=== PATIENT | female | born 1965 | race Caucasian/White ===

== ENCOUNTER → 2017-10-26 07:51 | Outpatient (CLI) | payer OTHER, SELFPAY ==
--- NOTE | 2017-10-26 06:56 | HPBI_ITS ---
MAMMOGRAPHY - BILATERAL SCREENING REASON FOR EXAM: Female, 51 years old. Routine annual screening examination. PERTINENT HISTORY: Non-contributory. TECHNIQUE: Digital bilateral breast willa (3D mammographic acquisition) in the CC and MLO projections. 2-D mediolateral oblique (MLO) and craniocaudad (CC) views of both breasts were obtained. CAD: Full Field Digital Mammography with Computer Added Detection was performed. COMPARISON: Comparison is made with prior examination dated October 12, 2016 and September 18, 2015. FINDINGS: Breast Composition: There are scattered areas of fibroglandular density. There are no dominant masses or suspicious calcifications. Stable small bilateral benign appearing axillary lymph nodes. No other significant abnormalities are identified. There has been no significant change since the prior study. HPBI/SCREENING MAMM (CAD), BILAT IMPRESSION: Stable bilateral screening mammogram. Yearly follow-up mammogram recommended. (A) ASSESSMENT CATEGORY: BIRADS Category 2: Benign. A letter regarding these results will be sent to the patient by the facility within 30 days. Approximately 10% of breast cancers are not detected by mammography. A normal mammogram should not delay biopsy of a clinically suspicious abnormality. [id number] Electronically Signed: Gerardo Leon MD at 8:22 EST Tel [phone], Service support ,
== END ==
PROVIDERS: Family Provider Family Medicine; PCP Family Medicine; Visit Provider Family Medicine
DX: Z12.31 Encounter for screening mammogram for malignant neoplasm of breast (principal)
CPT/HCPCS: 77063; 77067

== ENCOUNTER → 2017-11-24 10:34 | Outpatient (CLI) | payer OTHER, SELFPAY ==
[2017-11-24 12:22] LABS: Absolute Lymphocyte Count 1.51 X10^3/ul (0.83-4.51); Absolute Neutrophil Count 5.2 X10^3/uL (2.0-7.7); Basophil# 0.01 X10^3/uL; Basophil% 0.1 % (0-1); Eosinophil# 0.06 X10^3/uL; Eosinophils% 0.8 % (0-5); Hematocrit 41.4 % (37-47); Hemoglobin 13.7 g/dl (12.0-15.0); Lymphocyte # 1.51 X10^3/ul (4.0); Lymphocyte % 20.8 % (19-41); Mean Corp Hgb Conc 33.1 g/gl (32-36); Mean Corpuscular Hgb 30.3 pg (27.0-32.0); Mean Corpuscular Volume 91.6 fL (81-99); Monocyte# 0.48 X10^3/uL; Monocyte% 6.6 % (0-10); Neutrophil # 5.18 X10^3/uL (2.7-7.7); Neutrophil % 71.6 % (47-70); Platelet Count 295 K/mm3 (150-450); RBC Distribution Width CV 13.5 % (11.6-14.6); RBC Distribution Width SD 44.8 fl (35.1-43.9); Red Blood Count 4.52 M/mm3 (4.2-5.4); White Blood Count 7.3 K/mm3 (4.4-11.0)
[2017-11-24 12:34] LABS: ALB/GLOB Ratio 0.9 RATIO (0.9-2.4); AST(SGOT) 25 U/L (15-37); Alanine Aminotransfer ALT/SGPT 43 U/L (13-56); Albumin, Serum 3.7 g/dL (3.2-5.0); Alkaline Phosphatase 125 U/L (45-117); Anion Gap 8 (5-15); BUN 16 mg/dL (7-18); BUN/Creat Ratio 20.8 RATIO (10-20); Calcium,Total 9.1 mg/dL (8.5-10.1); Chloride 103 mmol/L (98-107); Cholesterol 186 mg/dL (200); Creatinine, Serum 0.77 mg/dL (0.55-1.02); EST Glomerular Filtration Rate 83 mL/min (>60); Est Glom Filt Rate - Afr Amer 100 mL/min (>60); Globulin 3.9 g/dL (2.2-4.2); Glucose 93 mg/dL (74-106); High Density Lipoprotein 76 mg/dL; Potassium 3.4 mmol/L (3.5-5.1); Protein, Total 7.6 g/dL (6.4-8.2); Sodium Level 139 mmol/L (136-145); Triglycerides 76 mg/dL; Very Low Density Lipoprotein 15 mg/dL (5-40)
[2017-11-24 12:35] LABS: POSITIVE COUNT NO; POSITIVE DIFFERENTIAL NO; POSITIVE MORPHOLOGY NO
== END ==
PROVIDERS: Family Provider Family Medicine; PCP Family Medicine; Visit Provider Family Medicine
DX: I10 Essential (primary) hypertension (principal); E78.5 Hyperlipidemia, unspecified; R53.83 Other fatigue; Z51.81 Encounter for therapeutic drug level monitoring
CPT/HCPCS: 36415; 80053; 80061; 85025

== ENCOUNTER → 2017-12-22 11:46 | Outpatient (CLI) | payer OTHER, SELFPAY ==
[2017-12-24 14:52] LABS: HPV Reflexed? NOT INDICATED
== END ==
PROVIDERS: Visit Provider Obstetrics & Gynecology
DX: Z12.4 Encounter for screening for malignant neoplasm of cervix (principal)
CPT/HCPCS: 88175; G0145

== ENCOUNTER → 2018-08-25 08:16 | Outpatient (CLI) | payer OTHER, SELFPAY ==
[2018-08-25 12:32] LABS: Color, Urine Amber (Yellow); Glucose, Dipstick Normal (Normal); Ketone-Dipstick 5 mg/dl (Negative); Leukocyte Esterase-Dipstick 500 /ul (Negative); Nitrite-Dipstick Negative (Negative); Occult Blood-Urine 10 /ul (Negative); Protein-Dipstick 30 mg/dl (Negative); Urine Bilirubin Dipstick Negative (Negative); Urine Clarity Sl. Cloudy (Clear); Urine Urobilinogen 1 mg/dl (Normal)
[2018-08-25 12:48] LABS: Absolute Lymphocyte Count 6.44 X10^3/ul (0.83-4.51); Basophil# 0.24 X10^3/uL; Basophil% 2.2 % (0-1); Eosinophil# 0.18 X10^3/uL; Eosinophils% 1.7 % (0-5); Hematocrit 40.8 % (37-47); Hemoglobin 13.3 g/dl (12.0-15.0); Lymphocyte # 6.44 X10^3/ul (4.0); Lymphocyte % 59.2 % (19-41); Mean Corp Hgb Conc 32.6 g/gl (32-36); Mean Corpuscular Hgb 29.4 pg (27.0-32.0); Mean Corpuscular Volume 90.1 fL (81-99); Mean Platelet Vol. 10.9 fl (6.2-12.0); Monocyte# 1.03 X10^3/uL; Monocyte% 9.5 % (0-10); Neutrophil # 2.98 X10^3/uL (2.7-7.7); Neutrophil % 27.3 % (47-70); Platelet Count 260 K/mm3 (150-450); RBC Distribution Width CV 14.8 % (11.6-14.6); RBC Distribution Width SD 48.3 fl (35.1-43.9); Red Blood Count 4.53 M/mm3 (4.2-5.4); White Blood Count 10.9 K/mm3 (4.4-11.0)
[2018-08-25 12:49] LABS: Differential Indicated SCAN CRITERIA MET; POSITIVE COUNT NO; POSITIVE DIFFERENTIAL YES; POSITIVE MORPHOLOGY YES
[2018-08-25 12:51] LABS: BUN 15 mg/dL (7-18); BUN/Creat Ratio 16.1 RATIO (10-20); Creatinine, Serum 0.93 mg/dL (0.55-1.02); EST Glomerular Filtration Rate 67 mL/min (>60); Est Glom Filt Rate - Afr Amer 81 mL/min (>60); Glucose 131 mg/dL (74-106); Protein, Total 7.8 g/dL (6.4-8.2)
[2018-08-25 12:52] LABS: ALB/GLOB Ratio 0.6 RATIO (0.9-2.4); AST(SGOT) 131 U/L (15-37); Alanine Aminotransfer ALT/SGPT 258 U/L (13-56); Alkaline Phosphatase 505 U/L (45-117); Anion Gap 8 (5-15); Chloride 97 mmol/L (98-107); Globulin 4.8 g/dL (2.2-4.2); Potassium 3.4 mmol/L (3.5-5.1); Sodium Level 137 mmol/L (136-145)
[2018-08-25 12:53] LABS: White Blood Cells 10-25 SEEN /hpf (0-5)
[2018-08-25 12:54] LABS: Bacteria 2+ /hpf (None Seen); Mucous, Urine 1+ /hpf (<or=2+); Red Blood Cells-Urine 0-5 SEEN /hpf (0-5); Squamous Epithelial Cells - UA 25-50 SEEN /hpf (5-10)
[2018-08-25 13:16] LABS: Atypical Lymphocyte 2+ %; Differential Comment SCANNED
== END ==
LOC: LAB.FUTURE 08-21 19:31 → BFHLAB 05-01 08:30
PROVIDERS: Family Provider Family Medicine; PCP Family Medicine; Visit Provider Family Medicine
DX: R50.9 Fever, unspecified (principal); R30.0 Dysuria
CPT/HCPCS: 36415; 80053; 81001; 85025; 87086; 87088

== ENCOUNTER → 2018-08-31 09:48 | Outpatient (CLI) | payer OTHER, SELFPAY ==
[2018-08-31 12:41] LABS: Absolute Lymphocyte Count 6.92 X10^3/ul (0.83-4.51); Absolute Neutrophil Count 2.8 X10^3/uL (2.0-7.7); Basophil# 0.28 X10^3/uL; Basophil% 2.4 % (0-1); Eosinophil# 0.27 X10^3/uL; Eosinophils% 2.3 % (0-5); Hematocrit 39.1 % (37-47); Hemoglobin 12.9 g/dl (12.0-15.0); Lymphocyte # 6.92 X10^3/ul (4.0); Lymphocyte % 59.2 % (19-41); Mean Corpuscular Hgb 29.7 pg (27.0-32.0); Mean Corpuscular Volume 90.1 fL (81-99); Mean Platelet Vol. 10.8 fl (6.2-12.0); Monocyte# 1.41 X10^3/uL; Monocyte% 12.1 % (0-10); Neutrophil # 2.77 X10^3/uL (2.7-7.7); Neutrophil % 23.7 % (47-70); Platelet Count 258 K/mm3 (150-450); RBC Distribution Width SD 49.1 fl (35.1-43.9); Red Blood Count 4.34 M/mm3 (4.2-5.4); White Blood Count 11.7 K/mm3 (4.4-11.0)
[2018-08-31 12:44] LABS: ALB/GLOB Ratio 0.7 RATIO (0.9-2.4); AST(SGOT) 66 U/L (15-37); Alanine Aminotransfer ALT/SGPT 106 U/L (13-56); Alkaline Phosphatase 333 U/L (45-117); Anion Gap 7 (5-15); BUN 16 mg/dL (7-18); BUN/Creat Ratio 17.4 RATIO (10-20); Calcium,Total 9.4 mg/dL (8.5-10.1); Chloride 100 mmol/L (98-107); Creatinine, Serum 0.92 mg/dL (0.55-1.02); EST Glomerular Filtration Rate 67 mL/min (>60); Est Glom Filt Rate - Afr Amer 81 mL/min (>60); Globulin 4.6 g/dL (2.2-4.2); Glucose 88 mg/dL (74-106); Potassium 3.9 mmol/L (3.5-5.1); Protein, Total 7.6 g/dL (6.4-8.2); Sodium Level 140 mmol/L (136-145)
[2018-08-31 13:02] LABS: Differential Indicated SCAN CRITERIA MET; POSITIVE COUNT NO; POSITIVE DIFFERENTIAL YES; POSITIVE MORPHOLOGY YES
[2018-08-31 13:03] LABS: Atypical Lymphocyte 1+ %
[2018-09-02 11:03] LABS: EBV Acute VCA IgM < 36.0 U/mL (0.0-35.9); EBV Early Antigen IgG 91.7 U/mL (0.0-8.9); EBV-VCA IgG > 600.0 U/mL (0.0-17.9)
== END ==
LOC: LAB.FUTURE 08-21 19:43 → MTLAB 05-01 08:29
PROVIDERS: Family Provider Family Medicine; PCP Family Medicine; Referring Provider Family Medicine; Visit Provider Family Medicine
DX: R53.83 Other fatigue (principal); B34.9 Viral infection, unspecified; D72.820 Lymphocytosis (symptomatic); R74.8 Abnormal levels of other serum enzymes
CPT/HCPCS: 36415; 80053; 85025; 86663; 86664; 86665

== ENCOUNTER → 2018-09-12 10:17 | Outpatient (CLI) | payer OTHER, SELFPAY ==
[2017-03-29 07:59] VITALS: BMI 29.6
[2018-09-12 12:07] LABS: ALB/GLOB Ratio 0.7 RATIO (0.9-2.4); AST(SGOT) 46 U/L (15-37); Alanine Aminotransfer ALT/SGPT 56 U/L (13-56); Albumin, Serum 3.3 g/dL (3.2-5.0); Alkaline Phosphatase 189 U/L (45-117); Anion Gap 8 (5-15); BUN 19 mg/dL (7-18); BUN/Creat Ratio 20.7 RATIO (10-20); Calcium,Total 9.2 mg/dL (8.5-10.1); Chloride 104 mmol/L (98-107); Creatinine, Serum 0.92 mg/dL (0.55-1.02); EST Glomerular Filtration Rate 68 mL/min (>60); Est Glom Filt Rate - Afr Amer 82 mL/min (>60); Globulin 4.5 g/dL (2.2-4.2); Glucose 131 mg/dL (74-106); Potassium 4.3 mmol/L (3.5-5.1); Protein, Total 7.8 g/dL (6.4-8.2); Sodium Level 140 mmol/L (136-145)
[2018-09-12 12:08] LABS: Absolute Lymphocyte Count 5.85 X10^3/ul (0.83-4.51); Absolute Neutrophil Count 2.5 X10^3/uL (2.0-7.7); Basophil# 0.07 X10^3/uL; Basophil% 0.8 % (0-1); Eosinophil# 0.09 X10^3/uL; Hematocrit 40.3 % (37-47); Hemoglobin 12.9 g/dl (12.0-15.0); Lymphocyte # 5.85 X10^3/ul (4.0); Lymphocyte % 63.2 % (19-41); Mean Corpuscular Hgb 29.3 pg (27.0-32.0); Mean Corpuscular Volume 91.4 fL (81-99); Mean Platelet Vol. 10.5 fl (6.2-12.0); Monocyte# 0.76 X10^3/uL; Monocyte% 8.2 % (0-10); Neutrophil # 2.47 X10^3/uL (2.7-7.7); Neutrophil % 26.7 % (47-70); Platelet Count 296 K/mm3 (150-450); RBC Distribution Width CV 16.5 % (11.6-14.6); RBC Distribution Width SD 54.5 fl (35.1-43.9); Red Blood Count 4.41 M/mm3 (4.2-5.4); White Blood Count 9.3 K/mm3 (4.4-11.0)
[2018-09-12 12:14] LABS: Differential Indicated SCAN CRITERIA MET; POSITIVE COUNT NO; POSITIVE DIFFERENTIAL YES; POSITIVE MORPHOLOGY NO
[2018-09-12 13:01] LABS: Platelet Estimate ADEQUATE (ADEQ); Reactive Lymphocyte 1+
[2018-09-12 13:02] LABS: Red Cell Morphology NORM C+C NORMAL (NORM C&C)
== END ==
LOC: LAB.FUTURE 08-21 20:17 → BFHLAB 05-01 08:28
PROVIDERS: Family Provider Family Medicine; PCP Family Medicine; Visit Provider Family Medicine
DX: R74.8 Abnormal levels of other serum enzymes (principal); R79.89 Other specified abnormal findings of blood chemistry
CPT/HCPCS: 36415; 80053; 85025

== ENCOUNTER → 2018-10-10 10:25 | Outpatient (CLI) | payer OTHER, SELFPAY ==
[2018-10-10 12:51] LABS: Absolute Neutrophil Count 1.5 X10^3/uL (2.0-7.7); Basophil# 0.03 X10^3/uL; Basophil% 0.5 % (0-1); Eosinophil# 0.08 X10^3/uL; Eosinophils% 1.3 % (0-5); Hematocrit 39.7 % (37-47); Hemoglobin 12.9 g/dl (12.0-15.0); Lymphocyte % 64.9 % (19-41); Mean Corp Hgb Conc 32.5 g/gl (32-36); Mean Corpuscular Hgb 29.7 pg (27.0-32.0); Mean Corpuscular Volume 91.5 fL (81-99); Mean Platelet Vol. 10.7 fl (6.2-12.0); Monocyte# 0.55 X10^3/uL; Monocyte% 9.2 % (0-10); Neutrophil # 1.45 X10^3/uL (2.7-7.7); Neutrophil % 24.1 % (47-70); Platelet Count 266 K/mm3 (150-450); RBC Distribution Width SD 50.3 fl (35.1-43.9); Red Blood Count 4.34 M/mm3 (4.2-5.4)
[2018-10-10 12:54] LABS: POSITIVE COUNT NO; POSITIVE DIFFERENTIAL NO; POSITIVE MORPHOLOGY NO
[2018-10-10 13:01] LABS: ALB/GLOB Ratio 0.9 RATIO (0.9-2.4); AST(SGOT) 47 U/L (15-37); Alanine Aminotransfer ALT/SGPT 58 U/L (13-56); Albumin, Serum 3.7 g/dL (3.2-5.0); Alkaline Phosphatase 133 U/L (45-117); Anion Gap 7 (5-15); BUN 20 mg/dL (7-18); BUN/Creat Ratio 23.6 RATIO (10-20); Calcium,Total 9.6 mg/dL (8.5-10.1); Chloride 104 mmol/L (98-107); Creatinine, Serum 0.85 mg/dL (0.55-1.02); EST Glomerular Filtration Rate 74 mL/min (>60); Est Glom Filt Rate - Afr Amer 90 mL/min (>60); Globulin 4.3 g/dL (2.2-4.2); Glucose 83 mg/dL (74-106); Potassium 3.6 mmol/L (3.5-5.1); Sodium Level 138 mmol/L (136-145)
== END ==
PROVIDERS: Family Provider Family Medicine; PCP Family Medicine; Visit Provider Family Medicine
DX: R94.5 Abnormal results of liver function studies (principal); R79.89 Other specified abnormal findings of blood chemistry
CPT/HCPCS: 36415; 80053; 85025

== ENCOUNTER → 2018-10-28 10:13 | Outpatient (CLI) | payer OTHER, SELFPAY ==
[2018-10-28 12:25] LABS: ALB/GLOB Ratio 0.9 RATIO (0.9-2.4); AST(SGOT) 48 U/L (15-37); Alanine Aminotransfer ALT/SGPT 62 U/L (13-56); Albumin, Serum 3.8 g/dL (3.2-5.0); Alkaline Phosphatase 123 U/L (45-117); Anion Gap 8 (5-15); BUN 18 mg/dL (7-18); BUN/Creat Ratio 23.3 RATIO (10-20); Calcium,Total 9.3 mg/dL (8.5-10.1); Chloride 102 mmol/L (98-107); Creatinine, Serum 0.77 mg/dL (0.55-1.02); EST Glomerular Filtration Rate 83 mL/min (>60); Est Glom Filt Rate - Afr Amer 100 mL/min (>60); Globulin 4.1 g/dL (2.2-4.2); Glucose 89 mg/dL (74-106); Potassium 3.6 mmol/L (3.5-5.1); Protein, Total 7.9 g/dL (6.4-8.2); Sodium Level 137 mmol/L (136-145)
== END ==
LOC: LAB.FUTURE 08-23 03:06 → BFHLAB 05-01 08:28
PROVIDERS: Family Provider Family Medicine; PCP Family Medicine; Visit Provider Family Medicine
DX: R74.8 Abnormal levels of other serum enzymes (principal)
CPT/HCPCS: 36415; 80053

== ENCOUNTER → 2018-11-04 10:21 | Outpatient (CLI) | payer OTHER, SELFPAY ==
--- NOTE | 2018-11-04 10:25 | US_ITS ---
STUDY: ABDOMINAL ULTRASOUND - RIGHT UPPER QUADRANT REASON FOR VISIT: Female, 52 years old. ELEVATED LFT'S HX OF ANUP LOBO TECHNIQUE: Ultrasound evaluation of the right upper quadrant was performed with real-time and static mendoza-scale imaging. TECHNICAL QUALITY: Adequate. COMPARISON: None. FINDINGS: Liver: The liver measures 12.8 cm. There is normal echogenicity of the liver. The bile ducts are within normal limits. There is hepatic color flow. The direction of portal flow is hepatopetal. There is no demonstrated mass lesion. Gallbladder: Normal distended gallbladder. The gallbladder wall measures 2.9 mm. There is a negative sonographic Payton's sign. There is no pericholecystic fluid. There are no gallstones. Common Bile Duct (C.B.D.): The common bile duct measures 2.7 mm. Pancreas: Normal size of the head, body and tail of the pancreas. There is normal echogenicity of the pancreas. There is no demonstrated pancreatic mass or cyst. Right Kidney: Normal size of the right kidney. The right kidney measures 10.5 cm. Normal renal cortex. The right cortex measures 1.2 cm. There is a 1.3 cm cyst. There is no right hydronephrosis. US/Abdomen Limited IMPRESSION: Normal right upper quadrant ultrasound examination. Electronically Signed: Nicho iNcholas MD at 22:55 EST , Service support ,
== END ==
PROVIDERS: Family Provider Family Medicine; PCP Family Medicine; Referring Provider Family Medicine; Visit Provider Family Medicine
DX: R74.8 Abnormal levels of other serum enzymes (principal)
CPT/HCPCS: 76705

== ENCOUNTER → 2018-11-29 15:20 | Outpatient (CLI) | payer OTHER, SELFPAY ==
[2018-11-23 13:13] LABS: ALB/GLOB Ratio 0.9 RATIO (0.9-2.4); AST(SGOT) 40 U/L (15-37); Alanine Aminotransfer ALT/SGPT 52 U/L (13-56); Albumin, Serum 3.7 g/dL (3.2-5.0); Alkaline Phosphatase 128 U/L (45-117); Anion Gap 6 (5-15); BUN 21 mg/dL (7-18); Calcium,Total 9.6 mg/dL (8.5-10.1); Chloride 102 mmol/L (98-107); Creatinine, Serum 0.88 mg/dL (0.55-1.02); EST Glomerular Filtration Rate 71 mL/min (>60); Est Glom Filt Rate - Afr Amer 86 mL/min (>60); Globulin 4.1 g/dL (2.2-4.2); Glucose 88 mg/dL (74-106); Potassium 3.9 mmol/L (3.5-5.1); Protein, Total 7.8 g/dL (6.4-8.2); Sodium Level 138 mmol/L (136-145)
--- OUTSIDE RECORDS SUMMARY | 2019-01-11 21:24 | XMS RPT_ITS | CCD ---
:1965 External Reference #:[id number] Author Organization [facility] Care Team Providers Name Role Phone Unavailable Unavailable Unavailable Medications Medication Name Sig Date Prescriber Location aspirin QI LOW DOSE 81 MG 07-17-2014 [facility] TBEC One tablet every (38311) other day ASPIRIN [id number] Millicent A Malys, DO QI LOW DOSE 81 MG TBEC One tablet 07-17-2014 [facility] (83162) every other day ASPIRIN 68516399680 Millicent A Malys, DO atenolol ATENOLOL 25 MG TABS One 07-17-2014 Millicent A Malys, DO [facility] half tab every day (17369) ATENOLOL 30219018766 Millicent A Malys, DO ATENOLOL 25 MG TABS One half 07-17-2014 Millicent A Malys, DO [facility] tab every day (98528) ATENOLOL 87926537946 Millicent A Malys, DO cholecalciferol VITAMIN D3 2000 UNIT TABS One 07-17-2014 [facility] tablet by mouth daily (62944) CHOLECALCIFEROL 41669925170 Millicent A Malys, DO VITAMIN D3 2000 UNIT TABS One tablet by 07-17-2014 [facility] (55779) mouth daily CHOLECALCIFEROL 74110034104 Millicent A Malys, DO cranberry preparation CRANBERRY 300 MG TABS One 07-17-2014 [facility] tablet by mouth daily (57601) CRANBERRY 66435351101 Millicent A Malys, DO CRANBERRY 300 MG TABS One tablet by 07-17-2014 [facility] (08967) mouth daily CRANBERRY 47282732097 Millicent A Malys, DO cyclobenzaprine CYCLOBENZAPRINE HCL 5 MG 11-01-2015 Toni Osborne [facility] TABS 1-2 tablet three DO [facility] (96190) times daily as needed for back pain CYCLOBENZAPRINE HCL 40197825012 Toni Osborne DO CYCLOBENZAPRINE HCL 5 MG TABS 11-01-2015 Toni Osborne DO [facility] 1-2 tablet three times daily (10656) as needed for back pain CYCLOBENZAPRINE HCL 13927552767 Toni Osborne DO escitalopram ESCITALOPRAM OXALATE 10 07-17-2014 Millicent A Malys, DO [facility] MG TABS One tablet by [facility] (73061) mouth daily ESCITALOPRAM OXALATE 29306305414 Millicent A Malys, DO ESCITALOPRAM OXALATE 10 MG 07-17-2014 Millicent A Malys, DO [facility] TABS One tablet by mouth daily (23187) ESCITALOPRAM OXALATE 31144731941 Millicent A Malys, DO hydroCHLOROthiazide HYDROCHLOROTHIAZIDE 25 MG 07-17-2014 Millicent A [facility] TABS One tablet by mouth Malys, DO [facility] daily (80132) HYDROCHLOROTHIAZIDE 15951389055 Millicent A Malys, DO HYDROCHLOROTHIAZIDE 25 MG TABS 07-17-2014 Millicent A Malys, DO [facility] One tablet by mouth daily (22234) HYDROCHLOROTHIAZIDE 63747454477 Millicent A Malys, DO MULTIPLE VITAMINS-MINERALS WOMENS MULTIVITAMIN PLUS 07-17-2014 [facility] TABS One tablet by mouth [facility] (88498) daily MULTIPLE VITAMINS-MINERALS 09879158718 Millicent A Malys, DO MULTIPLE VITAMINS-MINERALS WOMENS MULTIVITAMIN PLUS 07-17-2014 [facility] TABS One tablet by mouth [facility] (33634) daily MULTIPLE VITAMINS-MINERALS 51347349726 Millicent A Malys, DO OMEGA-3 FATTY ACIDS CPDR OMEGA 3 CPDR One tablet by 07-17-2014 [facility] mouth daily [facility] (68573) OMEGA-3 FATTY ACIDS CPDR 51279861186 Millicent Gabriella Malys, DO OMEGA-3 FATTY ACIDS CPDR OMEGA 3 CPDR One tablet by 07-17-2014 [facility] mouth daily [facility] (94815) OMEGA-3 FATTY ACIDS CPDR 40386720963 Millicent Gabriella Malys, DO Problems Active Problems Category Problem Name Status Date Location Anxiety disorders Anxiety disorder Active [facility] (65739) Essential hypertension Hypertensive disorder Active [facility] (53108) Mood disorders Depressive disorder Active [facility] (36711) Unclassified Screening for Active 03-22-2017 - [facility] malignant neoplasm of [facility] (50731) colon Unclassified Adult health Active 07-17-2014 - [facility] examination [facility] (18538) Unclassified Screening mammography Active 07-17-2014 - [facility] (95722) Past or Other Problems Category Problem Name Status Date Location Otitis media and Dysfunction of Completed 08-23-2015 - [facility] related conditions eustachian tube [facility] (97496) Results Result Name Value Range Unit Interpretation Flag Date Location rx refill: erx request for escitalopram tab 10mg on null e-scripts [id number]`ESCITALOPRAM Better 01-03-2016 [facility] messenger TAB 10MG`10MG``90 Tablet`90`TAKE 1 TABLET BY - Surgical refill MOUTH DAILY``4`0`01/22/2015`01/03/2016[facility] 01-03-2016 [facility]*`[id number]``ESCITALOPRAM (67126) TAB 10MG Quantity: 90 Tablet Instructions: TAKE 1 TABLET BY MOUTH DAILY ESM_RR [id number]`ESCITALOPRAM Better 01-03-2016 [facility] TAB 10MG`10MG``90 Tablet`90`TAKE 1 TABLET BY - Surgical MOUTH DAILY``4`0`01/22/2015`01/03/2016[facility] 01-03-2016 [facility]*`[id number]``ESCITALOPRAM (19674) TAB 10MG Quantity: 90 Tablet Instructions: TAKE 1 TABLET BY MOUTH DAILY replaced document: (p) pap i-g w/rfx hrhpv on null GE use only - for Comment . Invalid Interpretation 10-14-2015 [facility] [employer] import Code 10-14-2015 [facility] when terms are (89464) not otherwise specified HPV RFLX Comment . 10-14-2015 - [facility] 10-14-2015 [facility] (21513) office visit: screening c-scope on null Dietary management yes Invalid 03-22-2017 [facility] education, Interpretation Code 03-22-2017 [facility] guidance, and (18635) counseling (procedure) Documentation of Done Invalid 03-22-2017 [facility] current Interpretation Code 03-22-2017 [facility] medications (43495) (procedure) Fall risk No Invalid 03-22-2017 [facility] assessment Interpretation Code 03-22-2017 [facility] (94880) Protein mass conc Done 03-22-2017 - [facility] 03-22-2017 [facility] (20404) Tobacco smoking Never smoker 03-22-2017 [facility] Surgical status UTIS 03-22-2017 [facility] (86967) Tobacco smoking Never Invalid 03-22-2017 [facility] Surgical status UTIS Interpretation Code 03-22-2017 [facility] (93733) Tobacco use HS Never smoker Invalid 03-22-2017 [facility] Interpretation Code 03-22-2017 [facility] (91171) Breast Mammogram Normal Invalid 11-18-2016 [facility] screening Bilateral Interpretation Code 11-18-2016 [facility] (28028) MG Breast Normal 11-18-2016 [facility] screening Bilateral 11-18-2016 [facility] (00303) General categories Normal Invalid 10-12-2016 [facility] [interpretation] Interpretation Code 10-12-2016 [facility] Cervical or (96381) vaginal smear or scraping by Cyto stain General categories Normal 10-12-2016 - [facility] Cyto stain Interp 10-12-2016 [facility] (Cervical or (65831) vaginal smear or scraping) Vital Signs Vital Sign Description Value / Unit Date Location The following section is limited to 5 entries per type and includes entries from the following time range: [id number] - [id number]. BMI (Body Mass Index) 30.68 kg/m2 03-22-2017 - 03-22-2017 [facility] (50832) Body Temperature 98 [degF] 03-22-2017 - 03-22-2017 [facility] (73887) BSA (Body Surface Area) 1.76 m2 08-23-2015 - 08-23-2015 [facility] (56495) Height 160.02 cm 03-22-2017 - 03-22-2017 [facility] (52106) Pulse (Heart Rate) 56 /min 03-22-2017 - 03-22-2017 [facility] (64606) Respiratory Rate 18 /min 03-22-2017 - 03-22-2017 [facility] (75133) Weight 78.56 kg 03-22-2017 - 03-22-2017 [facility] (91132) Procedures Procedure Name Date Provider Location Dietary management 03-22-2017 - [facility] education, guidance, and 03-22-2017 (39786) counseling Screening for malignant 03-22-2017 [facility] neoplasm of colon (38147) Adult health examination 07-17-2014 [facility] (33220) Screening mammography 07-17-2014 [facility] (66335) Plan of Treatment Plan Description Date Location Appointment Appointment 03-22-2017 - [facility] 03-22-2017 [facility] (70345) Colonoscopy Colonoscopy 03-22-2017 - [facility] 03-22-2017 [facility] (21392) Follow Up Appt Other Follow Up Appt Other 03-22-2017 - [facility] 03-22-2017 [facility] (36173) Mammogram, Screening, Mammogram, Screening, 08-23-2015 - [facility] both breasts both breasts 08-23-2015 [facility] (15773) Mammogram, Screening, Mammogram, Screening, 07-17-2014 - [facility] both breasts both breasts 07-17-2014 [facility] (50416) The following information is from the original human readable content Type Date Detail Appointment 01:30 PM Anum Gregory MD, [address] [place] [address], [address], [place], [address] Pending order Colonoscopy Pending order Follow Up Appt Other Pending order Mammogram, Screening, both breasts Pending order Mammogram, Screening, both breasts Type Date Detail Pending order Colonoscopy Pending order Follow Up Appt Other Pending order Mammogram, Screening, both breasts Pending order Mammogram, Screening, both breasts Additional Source Comments FOR RECORDS PERTAINING TO PATIENTS WHO ARE OR HAVE BEEN ENROLLED IN A CHEMICAL DEPENDENCY/SUBSTANCE ABUSE PROGRAM, SOME INFORMATION MAY BE OMITTED. This clinical summary was aggregated from multiple sources. Caution should be exercised in using it in the provision of clinical care. This summary normalizes information from multiple sources, and as a consequence, information in this document may materially changethe coding, format and clinical context of patient data. In addition, data may be omittedin some cases. CLINICAL DECISIONS SHOULD BE BASED ON THE PRIMARY CLINICAL RECORDS. [facility] provides no warranty or guarantee of the accuracy or completeness of information in this document.
== END ==
PROVIDERS: Family Provider Family Medicine; PCP Family Medicine; Visit Provider Family Medicine
DX: R74.8 Abnormal levels of other serum enzymes (principal)
CPT/HCPCS: 36415; 80053

== ENCOUNTER → 2018-11-30 08:32 | Outpatient (CLI) | payer OTHER, SELFPAY ==
--- NOTE | 2018-11-30 08:35 | BI_ITS ---
MAMMOGRAPHY - BILATERAL SCREENING REASON FOR EXAM: Female, 52 years old. Routine annual screening examination. PERTINENT HISTORY: Non-contributory. TECHNIQUE: Digital bilateral breast boubacar (3D mammographic acquisition) in the CC and MLO projections. 2-D mediolateral oblique (MLO) and craniocaudad (CC) views of both breasts were obtained. CAD: Full Field Digital Mammography with Computer Added Detection was performed. COMPARISON: Comparison is made with prior study dated October 26, 2017 and October 12, 2016. FINDINGS: Breast Composition: There are scattered areas of fibroglandular density. There are no dominant masses or suspicious calcifications. Small bilateral axillary lymph nodes. No other significant abnormalities are identified. There has been no significant change since the prior study. BI/SCREEN MAMM (CAD) W/BOUBACAR BILAT IMPRESSION: Stable bilateral screening mammogram. Yearly follow-up mammogram recommended. (A) ASSESSMENT CATEGORY: BIRADS Category 2: Benign. A letter regarding these results will be sent to the patient by the facility within 30 days. Approximately 10% of breast cancers are not detected by mammography. A normal mammogram should not delay biopsy of a clinically suspicious abnormality. [id number] Electronically Signed: Gerardo Leon, at 9:41 EDT , Service support ,
== END ==
PROVIDERS: Family Provider Family Medicine; PCP Family Medicine; Referring Provider Family Medicine; Visit Provider Family Medicine
DX: Z12.31 Encounter for screening mammogram for malignant neoplasm of breast (principal)
CPT/HCPCS: 77063; 77067

== ENCOUNTER → 2019-02-08 | Outpatient (CLI) | payer OTHER, SELFPAY ==
[2017-03-29 07:59] VITALS: BMI 29.6
[2019-02-08 12:40] LABS: ALB/GLOB Ratio 0.9 RATIO (0.9-2.4); AST(SGOT) 39 U/L (15-37); Alanine Aminotransfer ALT/SGPT 63 U/L (13-56); Albumin, Serum 3.6 g/dL (3.2-5.0); Alkaline Phosphatase 126 U/L (45-117); Anion Gap 7 (5-15); BUN 23 mg/dL (7-18); Calcium,Total 9.3 mg/dL (8.5-10.1); Chloride 103 mmol/L (98-107); Creatinine, Serum 0.85 mg/dL (0.55-1.02); EST Glomerular Filtration Rate 74 mL/min (>60); Est Glom Filt Rate - Afr Amer 89 mL/min (>60); Globulin 4.2 g/dL (2.2-4.2); Glucose 93 mg/dL (74-106); Potassium 3.7 mmol/L (3.5-5.1); Protein, Total 7.8 g/dL (6.4-8.2); Sodium Level 141 mmol/L (136-145)
== END | disposition home or self-care (01) ==
LOC: LAB.FUTURE 09:23
PROVIDERS: Family Provider Family Medicine; PCP Family Medicine; Visit Provider Family Medicine
DX: I10 Essential (primary) hypertension (principal); R74.8 Abnormal levels of other serum enzymes
CPT/HCPCS: 36415; 80053

== ENCOUNTER → 2019-02-15 15:01 | Outpatient (CLI) | payer OTHER, SELFPAY ==
[2019-02-21 15:38] LABS: HPV Reflexed? NOT INDICATED
== END ==
PROVIDERS: Visit Provider Obstetrics & Gynecology
DX: Z12.4 Encounter for screening for malignant neoplasm of cervix (principal)
CPT/HCPCS: 88175; G0145

== ENCOUNTER → 2020-05-15 | Outpatient (CLI) | payer OTHER, SELFPAY ==
[2017-03-29 07:59] VITALS: BMI 29.6
[2020-05-15 12:42] LABS: Absolute Lymphocyte Count 2.68 X10^3/uL (0.83-4.51); Absolute Neutrophil Count 1.8 X10^3/uL (2.0-7.7); Basophil# 0.04 X10^3/uL; Basophil% 0.8 % (0-1); Eosinophil# 0.11 X10^3/uL; Eosinophils% 2.2 % (0-5); Hematocrit 40.7 % (37-47); Hemoglobin 13.1 g/dL (12.0-15.0); Lymphocyte # 2.68 X10^3/ul (4.0); Lymphocyte % 53.6 % (19-41); Mean Corp Hgb Conc 32.2 g/dL (32-36); Mean Corpuscular Volume 93.1 fL (81-99); Mean Platelet Vol. 12.4 fl (6.2-12.0); NRBC Flagged by Analyzer 0 % (0-5); Neutrophil # 1.76 X10^3/uL (2.7-7.7); Neutrophil % 35.2 % (47-70); Platelet Count 266 K/mm3 (150-450); RBC Distribution Width CV 13.6 % (11.6-14.6); Red Blood Count 4.37 M/mm3 (4.2-5.4)
[2020-05-15 12:49] LABS: AST(SGOT) 41 U/L (15-37); Alanine Aminotransfer ALT/SGPT 51 U/L (13-56); Albumin, Serum 3.7 g/dL (3.2-5.0); Alkaline Phosphatase 110 U/L (45-117); Anion Gap 6 (5-15); BUN 19 mg/dL (7-18); BUN/Creat Ratio 25.9 RATIO (10-20); Calcium,Total 9.4 mg/dL (8.5-10.1); Chloride 103 mmol/L (98-107); Cholesterol 205 mg/dL (200); Creatinine, Serum 0.73 mg/dL (0.55-1.02); EST Glomerular Filtration Rate 87 mL/min (>60); Est Glom Filt Rate - Afr Amer 105 mL/min (>60); Globulin 3.8 g/dL (2.2-4.2); Glucose 91 mg/dL (74-106); High Density Lipoprotein 80 mg/dL; Potassium 4.3 mmol/L (3.5-5.1); Protein, Total 7.5 g/dL (6.4-8.2); Sodium Level 139 mmol/L (136-145); Triglycerides 47 mg/dL; Very Low Density Lipoprotein 9 mg/dL (5-40)
== END | disposition home or self-care (01) ==
LOC: BFHLAB 08:57
PROVIDERS: PCP Family Medicine; Visit Provider Family Medicine
DX: Z00.00 Encounter for general adult medical examination without abnormal findings (principal); I10 Essential (primary) hypertension; R53.83 Other fatigue
CPT/HCPCS: 36415; 80053; 80061; 85025

== ENCOUNTER → 2020-05-23 | Outpatient (CLI) | payer OTHER, SELFPAY ==
[2017-03-29 07:59] VITALS: BMI 29.6
--- NOTE | 2020-05-23 08:10 | BI_ITS ---
MAMMOGRAPHY - BILATERAL SCREENING REASON FOR EXAM: Female, 54 years old. Routine annual screening examination. PERTINENT HISTORY: Non-contributory. TECHNIQUE: Digital bilateral breast boubacar (3D mammographic acquisition) in the CC and MLO projections. 2-D mediolateral oblique (MLO) and craniocaudad (CC) views of both breasts were obtained. CAD: Full Field Digital Mammography with Computer Added Detection was performed. COMPARISON: Comparison is made with prior study dated 11/30/2018 and 10/26/2017. FINDINGS: Breast Composition: There are scattered areas of fibroglandular density. There are no dominant masses or suspicious calcifications. Stable benign-appearing bilateral axillary lymph nodes. No other significant abnormalities are identified. There has been no significant change since the prior study. BI/SCREEN MAMM (CAD) W/BOUBACAR BILAT IMPRESSION: Stable bilateral screening mammogram. Yearly follow-up mammogram recommended. (A) ASSESSMENT CATEGORY: BIRADS Category 2: Benign. A letter regarding these results will be sent to the patient by the facility within 30 days. Approximately 10% of breast cancers are not detected by mammography. A normal mammogram should not delay biopsy of a clinically suspicious abnormality. [id number] Electronically Signed: Gerardo Leon, at 9:32 EDT , Service support ,
== END | disposition home or self-care (01) ==
LOC: OPBI 08:09
PROVIDERS: PCP Family Medicine; Referring Provider Family Medicine; Visit Provider Family Medicine
DX: Z12.31 Encounter for screening mammogram for malignant neoplasm of breast (principal)
CPT/HCPCS: 77063; 77067

== ENCOUNTER 2020-11-19 15:22 | Outpatient (RCR) | payer OTHER, SELFPAY ==
[2017-03-29 07:59] VITALS: BMI 29.6
[2020-11-19] MEDS: COVID-19 VACC, MRNA(PFIZER)/PF 30 MCG/0.3 ML SYRINGE IM (12:31)
[2020-12-10] MEDS: COVID-19 VACC, MRNA(PFIZER)/PF 30 MCG/0.3 ML SYRINGE IM (12:29)
== END 2021-02-11 23:59 ==
LOC: IMMUN 15:22
PROVIDERS: PCP Family Medicine; Visit Provider Family Medicine
DX: Z23 Encounter for immunization (principal)
CPT/HCPCS: 0001A; 0002A; 91300

== ENCOUNTER 2021-11-12 07:38 | Outpatient (CLI) | payer OTHER, SELFPAY ==
--- NOTE | 2021-11-12 07:42 | BI_ITS ---
MAMMOGRAPHY - BILATERAL SCREENING REASON FOR EXAM: Female, 55 years old. Routine annual screening examination. PERTINENT HISTORY: Non-contributory. TECHNIQUE: Digital bilateral breast boubacar (3D mammographic acquisition) in the CC and MLO projections. 2-D mediolateral oblique (MLO) and craniocaudad (CC) views of both breasts were obtained. CAD: Full Field Digital Mammography with Computer Added Detection was performed. COMPARISON: Comparison is made with prior study dated 05/23/2020 and 11/30/2018. FINDINGS: Breast Composition: There are scattered areas of fibroglandular density. There are no dominant masses or suspicious calcifications. Stable small benign-appearing bilateral axillary lymph nodes. No other significant abnormalities are identified. There has been no significant change since the prior study. BI/SCRN MAMM (CAD)W/BOUBACAR BILAT IMPRESSION: Stable bilateral screening mammogram. Yearly follow-up mammogram recommended. (A) ASSESSMENT CATEGORY: BIRADS Category 2: Benign. A letter regarding these results will be sent to the patient by the facility within 30 days. Approximately 10% of breast cancers are not detected by mammography. A normal mammogram should not delay biopsy of a clinically suspicious abnormality. [id number] Electronically Signed: Gerardo Leon MD at 8:39 EST ,
== END 2021-11-12 23:59 | disposition home or self-care (01) ==
LOC: OPBI 07:39
PROVIDERS: PCP Family Medicine; Visit Provider Family Medicine
DX: Z12.31 Encounter for screening mammogram for malignant neoplasm of breast (principal)
CPT/HCPCS: 77063; 77067

== ENCOUNTER → 2022-07-16 | Outpatient (CLI) | payer OTHER, SELFPAY ==
[2022-07-16 12:43] LABS: Absolute Lymphocyte Count 2.32 X10^3/uL (0.83-4.51); Absolute Neutrophil Count 2.3 X10^3/uL (2.0-7.7); Basophil# 0.03 X10^3/uL; Basophil% 0.6 % (0-1); Eosinophil# 0.08 X10^3/uL; Eosinophils% 1.5 % (0-5); Hematocrit 39.1 % (37-47); Lymphocyte # 2.32 X10^3/ul (0.83-4.51); Lymphocyte % 44.8 % (19-41); Mean Corp Hgb Conc 33.2 g/dL (32-36); Mean Corpuscular Hgb 30.8 pg (27.0-32.0); Mean Corpuscular Volume 92.7 fL (81-99); Mean Platelet Vol. 11.8 fl (6.2-12.0); Monocyte# 0.44 X10^3/uL; Monocyte% 8.5 % (0-10); NRBC Flagged by Analyzer 0 % (0-5); Neutrophil % 44.4 % (47-70); Platelet Count 251 K/mm3 (150-450); RBC Distribution Width CV 13.2 % (11.6-14.6); RBC Distribution Width SD 44.8 fl (35.1-43.9); Red Blood Count 4.22 M/mm3 (4.2-5.4); White Blood Count 5.2 K/mm3 (4.4-11.0)
[2022-07-16 13:26] LABS: ALB/GLOB Ratio 0.9 RATIO (0.9-2.4); AST(SGOT) 27 U/L (15-37); Alanine Aminotransfer ALT/SGPT 33 U/L (13-56); Albumin, Serum 3.5 g/dL (3.2-5.0); Alkaline Phosphatase 96 U/L (45-117); Anion Gap 6 (5-15); BUN 18 mg/dL (7-18); BUN/Creat Ratio 23.1 RATIO (10-20); Calcium,Total 9.6 mg/dL (8.5-10.1); Chloride 105 mmol/L (98-107); Cholesterol 193 mg/dL (200); Creatinine, Serum 0.78 mg/dL (0.55-1.02); EST Glomerular Filtration Rate 81 mL/min (>60); Est Glom Filt Rate - Afr Amer 98 mL/min (>60); Globulin 3.7 g/dL (2.2-4.2); Glucose 97 mg/dL (74-106); High Density Lipoprotein 92 mg/dL; Potassium 4.4 mmol/L (3.5-5.1); Protein, Total 7.2 g/dL (6.4-8.2); Sodium Level 141 mmol/L (136-145); Triglycerides 59 mg/dL; Very Low Density Lipoprotein 12 mg/dL (5-40)
== END | disposition home or self-care (01) ==
LOC: BFHLAB 09:48
PROVIDERS: PCP Family Medicine; Visit Provider Family Medicine
DX: I10 Essential (primary) hypertension (principal); Z51.81 Encounter for therapeutic drug level monitoring
CPT/HCPCS: 36415; 80053; 80061; 85025

== ENCOUNTER → 2022-12-07 | Outpatient (CLI) | payer OTHER, SELFPAY ==
--- NOTE | 2022-12-07 09:13 | BI_ITS ---
MAMMOGRAPHY - BILATERAL SCREENING REASON FOR EXAM: Female, 56 years old. Routine annual screening examination. PERTINENT HISTORY: Non-contributory. TECHNIQUE: Digital bilateral breast boubacar (3D mammographic acquisition) in the CC and MLO projections. 2-D mediolateral oblique (MLO) and craniocaudad (CC) views of both breasts were obtained. CAD: Full Field Digital Mammography with Computer Added Detection was performed. COMPARISON: Comparison is made with prior study November 12, 2021 and May 23, 2020. FINDINGS: Breast Composition: There are scattered areas of fibroglandular density. There are no dominant masses or suspicious calcifications. Stable small benign-appearing bilateral axillary lymph nodes. No other significant abnormalities are identified. There has been no significant change since the prior study. BI/SCRN MAMM (CAD)W/BOUBACAR BILAT IMPRESSION: Stable bilateral screening mammogram. Yearly follow-up mammogram recommended. (A) ASSESSMENT CATEGORY: BIRADS Category 2: Benign. A letter regarding these results will be sent to the patient by the facility within 30 days. Approximately 10% of breast cancers are not detected by mammography. A normal mammogram should not delay biopsy of a clinically suspicious abnormality. [id number] Electronically Signed: Gerardo Leon MD at 10:06 EDT ,
== END | disposition home or self-care (01) ==
LOC: OPBI 09:10
PROVIDERS: PCP Family Medicine; Visit Provider Family Medicine
DX: Z12.31 Encounter for screening mammogram for malignant neoplasm of breast (principal)
CPT/HCPCS: 77063; 77067

== ENCOUNTER 2023-07-26 11:37 | Outpatient (CLI) | payer OTHER, SELFPAY ==
[2023-07-26 15:31] LABS: Erythrocyte Sedimentation Rate 16 mm/hr (0-30)
[2023-07-26 15:36] LABS: Absolute Lymphocyte Count 2.55 X10^3/uL (0.83-4.51); Absolute Neutrophil Count 2.8 X10^3/uL (2.0-7.7); Basophil# 0.03 X10^3/uL; Basophil% 0.5 % (0-1); Eosinophil# 0.07 X10^3/uL; Eosinophils% 1.2 % (0-5); Hematocrit 42.2 % (37-47); Hemoglobin 13.5 g/dL (12.0-15.0); Lymphocyte # 2.55 X10^3/ul (0.83-4.51); Lymphocyte % 43.5 % (19-41); Mean Corpuscular Hgb 29.7 pg (27.0-32.0); Mean Platelet Vol. 11.9 fl (6.2-12.0); Monocyte# 0.41 X10^3/uL; NRBC Flagged by Analyzer 0 % (0-5); Neutrophil # 2.78 X10^3/uL (2.7-7.7); Neutrophil % 47.5 % (47-70); Platelet Count 337 K/mm3 (150-450); RBC Distribution Width CV 13.2 % (11.6-14.6); RBC Distribution Width SD 45.3 fl (35.1-43.9); Red Blood Count 4.54 M/mm3 (4.2-5.4); White Blood Count 5.9 K/mm3 (4.4-11.0)
[2023-07-26 15:42] LABS: ALB/GLOB Ratio 0.8 RATIO (0.9-2.4); AST(SGOT) 26 U/L (15-37); Alanine Aminotransfer ALT/SGPT 70 U/L (13-56); Albumin, Serum 3.7 g/dL (3.2-5.0); Alkaline Phosphatase 127 U/L (45-117); Anion Gap 6 (5-15); BUN 18 mg/dL (7-18); BUN/Creat Ratio 24.5 RATIO (10-20); CRP 5.83 mg/L (0.0-3.0); Calcium,Total 9.4 mg/dL (8.5-10.1); Chloride 103 mmol/L (98-107); Cholesterol 183 mg/dL (200); Creatinine, Serum 0.74 mg/dL (0.55-1.02); EST Glomerular Filtration Rate 86 mL/min (>60); Est Glom Filt Rate - Afr Amer 104 mL/min (>60); Globulin 4.4 g/dL (2.2-4.2); Glucose 92 mg/dL (74-106); High Density Lipoprotein 75 mg/dL; Potassium 3.8 mmol/L (3.5-5.1); Protein, Total 8.1 g/dL (6.4-8.2); Rheumatoid Factor < 10.0 IU/mL (<15); Sodium Level 139 mmol/L (136-145); Triglycerides 69 mg/dL; Very Low Density Lipoprotein 14 mg/dL (5-40)
[2023-07-28 12:09] LABS: ANTINUCLEAR ANTIBODIES DIRECT Negative (Negative); CCP IgG Antibodies 4 units (0-19)
[2023-07-31 14:07] LABS: HPV APTIMA, High Risk Negative (Negative)
== END 2023-07-26 23:59 | disposition home or self-care (01) ==
LOC: BFHLAB 11:38
PROVIDERS: PCP Family Medicine; Visit Provider Family Medicine
DX: E78.5 Hyperlipidemia, unspecified (principal); M25.50 Pain in unspecified joint; M79.10 Myalgia, unspecified site; Z51.81 Encounter for therapeutic drug level monitoring; Z12.4 Encounter for screening for malignant neoplasm of cervix
CPT/HCPCS: 36415; 80053; 80061; 85025; 85652; 86038; 86140; 86200; 86225; 86235; 86431; 87624; 88175; G0145

== ENCOUNTER → 2023-10-07 | Outpatient (CLI) | payer OTHER, SELFPAY ==
--- OUTSIDE RECORDS SUMMARY | 2023-10-07 09:24 | XMS RPT_ITS | CCD ---
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 Name Role Phone Anum Gregory MD Unavailable Medications Completed/Discontinued Medications Medication Drug Class(es) Dates Sig (Normalized) Sig (Original) aspirin 81 mg delayed release oral tablet (2 sources) Nonsteroidal Anti-inflammatory Drug Start: 07-17-2014 QI LOW DOSE 81 MG TBEC One tablet every other day ASPIRIN [id number] Millicent Peña, DO Problems Active Problems Problem Classification Problem Date Documented Da te Episodic/Chronic Anxiety disorders (2 sources) Anxiety disorder; Translations: [Anxiety disorder, unspecified] 07-17-2014 Chronic Essential hypertension (2 sources) Hypertensive disorder; Translations: [Essential (primary) hypertension] 07-17-2014 Chronic Mood disorders (2 sources) Depressive disorder; Translations: [Major depressive disorder, single episode, unspecified] 07-17-2014 Chronic Unclassified (1 source) Screening for malignant neoplasm of colon ; Translations: [Encounter for screening for malignant neoplasm of colon] Onset: 03-22-2017 03-22-2017 Unclassified (1 source) Adult health examination ; Translations: [Encounter for general adult medical examination without abnormal findings] Onset: 07-17-2014 07-19-2014 Unclassified (1 source) Screening mammography ; Translations: [Encounter for screening mammogram for malignant neoplasm of breast] Onset: 07-17-2014 07-17-2014 Past or Other Problems Problem Classification Problem Date Documented Da te Episodic/Chronic Otitis media and related conditions (2 sources) Dysfunction of eustachian tube; Translations: [Other specified disorders of Eustachian tube, unspecified ear] Onset: 08-23-2015 09-22-2015 Episodic Results Test Name Value Interpretation Reference Range Facil ity Vital Signs Date Time Vital Sign Value Performing Clinician Facility 07-17-2017 13:47-0400 BMI (Body Mass Index) 30.68 kg/m2 Anum Gregory MD [facility] Work Phone: 03-22-2017 13:47-0400 Body Temperature 98 [degF] Anum Gregory MD [facility] Work Phone: 03-22-2017 13:47-0400 BP Diastolic 91 mm[Hg] Anum Gregory MD [facility] Work Phone: 03-22-2017 13:47-0400 BP Systolic 142 mm[Hg] Anum Gregory MD [facility] Work Phone: 03-22-2017 13:47-0400 Height 160.02 cm Anum Gregory MD [facility] Work Phone: 03-22-2017 13:47-0400 Pulse (Heart Rate) 56 /min Anum Gregory MD [facility] Work Phone: 03-22-2017 13:47-0400 Respiratory Rate 18 /min Anum Gregory MD [facility] Work Phone: 03-22-2017 13:47-0400 Weight 78.56 kg Anum Gregory MD [facility] Work Phone: 08-23-2015 08:29-0500 BSA (Body Surface Area) 1.76 m2 Anum Gregory MD [facility] Work Phone: Procedures Date Procedure Procedure Detail Performing Clinician Start: 03-22-2017 End: 03-22-2017 Dietary management education, guidance, and counseling Anum Gregory MD Start: 03-22-2017 Screening for malign ant neoplasm of colon Screening for colon cancer Anum Gregory MD Start: 07-17-2014 Adult health examination Well adult exam Anum Gregory MD Start: 07-17-2014 Screening mammography Screening mamm ogram Anum Gregory MD Plan of Treatment Date Care Activity Detail Author Start: 03-22-2017 End: 03-22-2017 Appointment Appointment [facility] Work Phone: Start: 03-22-2017 End: 03-22-2017 Diagnostic colonoscopy Colonoscopy [facility] Work Phone: Start: 03-22-2017 End: 03-22-2017 Follow Up Appt Other Follow Up Appt Other [facility] Work Phone: Start: 08-23-2015 End: 08-23-2015 Mammogram, screening Mammogram, Screening, both breasts [facility] Work Phone: Start: 07-17-2014 End: 07-17-2014 Mammogram, Screening, both breasts Mammogram, Screening, both breasts [facility] Work Phone: Additional Source Comments FOR RECORDS PERTAINING TO PATIENTS WHO ARE OR HAVE BEEN ENROLLED IN A CHEMICAL DEPENDENCY/SUBSTANCEABUSE PROGRAM, SOME INFORMATION MAY BE OMITTED. This clinical summary was aggregated from multiple sources. Caution should be exercised in using it in the provision of clinical care. This summary normalizes information from multiple sources, and as a consequence, information in this document may materially change the coding, format and clinical context of patient data. In addition, data may be omitted in some cases. CLINICAL DECISIONS SHOULD BE BASED ON THE PRIMARY CLINICAL RECORDS. [facility]. provides no warranty or guarantee of the accuracy or completeness of information in this document.
== END | disposition home or self-care (01) ==
PROVIDERS: PCP Family Medicine; Referring Provider Family Medicine; Visit Provider Family Medicine
DX: R42 Dizziness and giddiness (principal); R00.2 Palpitations
CPT/HCPCS: 93225; 93226

== ENCOUNTER → 2024-01-06 | Outpatient (CLI) | payer OTHER, SELFPAY ==
--- NOTE | 2024-01-06 09:56 | BI_ITS ---
MAMMOGRAPHY - BILATERAL SCREENING REASON FOR EXAM: Female, 58 years old. Routine annual screening examination. PERTINENT HISTORY: Non-contributory. TECHNIQUE: Digital bilateral breast boubacar (3D mammographic acquisition) in the CC and MLO projections. 2-D mediolateral oblique (MLO) and craniocaudad (CC) views of both breasts were obtained. CAD: Full Field Digital Mammography with Computer Added Detection was performed. COMPARISON: Comparison is made with prior study December 07, 2022 and November 12, 2021. FINDINGS: Breast Composition: There are scattered areas of fibroglandular density. There are no dominant masses or suspicious calcifications. Stable small benign-appearing bilateral axillary lymph nodes. No other significant abnormalities are identified. There has been no significant change since the prior study. BI/SCRN MAMM (CAD)W/BOUBACAR BILAT IMPRESSION: Stable bilateral screening mammogram. Yearly follow-up mammogram recommended. (A) ASSESSMENT CATEGORY: BIRADS Category 2: Benign. A letter regarding these results will be sent to the patient by the facility within 30 days. Approximately 10% of breast cancers are not detected by mammography. A normal mammogram should not delay biopsy of a clinically suspicious abnormality. [id number] Electronically Signed: Gerardo Leon MD at 13:00 EDT ,
== END | disposition home or self-care (01) ==
LOC: OPBI 09:55
PROVIDERS: PCP Family Medicine; Visit Provider Family Medicine
DX: Z12.31 Encounter for screening mammogram for malignant neoplasm of breast (principal)
CPT/HCPCS: 77063; 77067

== ENCOUNTER 2024-05-21 11:17 | Emergency (ER) | payer OTHER, SELFPAY ==
[2024-05-21 11:18] VITALS: BP 180/104; PULSE 59; RESP 16; TEMP 36.6; O2SAT 98; BMI 29.2
--- NOTE | 2024-05-21 12:18 | EDS_ITS ---
<Statement entered by Timothy Connor, - 05/22/24 00:26> Supervisory Physician Note Patient was seen and examined with the Advanced Practice Provider. Nursing notes and vital signs have been reviewed. Pertinent old records have been reviewed. I agree with the essential elements of the EVE's history, physical exam, assessment, and plan. The differential diagnosis and management options were discussed with the EVE. I participated in determining and agree with the management, procedures, final impression and disposition as documented. See changes noted by me. Please see addendum or separate note for any additional details. 58-year-old female with history of HTN, anxiety, vertigo presents for evaluation of thoracic back pain. Patient states she woke up with thoracic back pain about 1 week ago. Describes it as crampy. Does not radiate to the chest or anywhere else. Denies any fall or trauma. Denies fever, chills, shortness of breath, chest pain, abdominal pain, nausea, vomiting, dysuria, diarrhea, constipation, incontinent or retention of urine or stool, numbness/tingling, weakness. Patient states she was looking up symptoms of back pain Internet in which AL was listed. Patient states she got worried and presents for this reason. Patient states that she has very bad anxiety and wanted to make sure everything was okay. Patient endorses intermittent vertigo when laying down and looking to the right. She states that she has seen her PCP for this and periodically does Carmelina maneuvers at home. No new vertigo or lightheadedness. Gen: A&O x3, NAD Head: Normocephalic, atraumatic Eyes: No sclera icterus, conjunctiva clear, PERRL, EOMI, no nystagmus with positional changes ENT: Moist mucous membranes Neck: Trachea midline, No JVD, Full ROM CV: RRR, no murmurs, no peripheral edema Resp: Lungs CTA BL, no w/r/c GI: Abd soft, non-distended, non-tender, no r/r/g Musc: Full ROM, No CVA tenderness. No deformity, mild tenderness to palpation of the paraspinal musculature of the mid thoracic back on the left and the right, no midline spinal tenderness, no bony step-offs, no signs of trauma or infection, strength plus 5 out of 5 in all extremities Skin: Warm, dry, no rash Neuro: Alert, oriented, grossly intact, sensation intact Psych: Cooperative, anxious Patient presents for evaluation of thoracic back pain. I suspect muscle skeleta l strain however differential does include pneumonia, anxiety, electrolyte abnormality. Low suspicion for ACS given that patient has no chest pain or other associated symptoms. Symptoms have been ongoing for a week and intermittent. Patient was given fluids, Zofran, meclizine prior to me seeing her. Vital stable other than hypertension. 1 view chest x-ray without pneumonia, effusion, pneumothorax. This was personally reviewed by me. CBC and CMP relatively unremarkable.. Lipase unremarkable. Troponin unremarkable. Suspect patient's pain is likely secondary to musculoskeletal strain. Patient stable to discharge home. Follow-up with PCP. Return precautions given. Impression: 1. Back strain 2. History of vertigo 3. Anxiety HPI History of Present Illness Chief Complaint: Dizziness Narrative Narrative: Patient is a 58-year-old female with history of hypertension, anxiety who presents to the emergency department for mid back pain for 1 week, feeling of dizziness of room spinning, anxiety. Patient states that she does have some heart history in her family, states that she began looking online about heart attacks in women, and she had some of the symptoms. She also states she broke out in cold sweat and then became more anxious. She is here for evaluation. Denies any fever chills nausea or vomiting. The dizziness she has had in the past and states that vertigo has been told her several times. [facility] Home Medications ?Medication ?Instructions ?Recorded ?Last Taken ?Type aspirin 81 mg tablet,delayed 81 mg PO DAILY@0800 03/25/17 03/21/17 History release atenolol 25 mg tablet 12.5 mg PO DAILY 03/25/17 03/29/17 07:00 History cholecalciferol (vitamin D3) 50 2,000 unit PO DAILY 03/25/17 Unknown History mcg (2,000 unit) capsule (Vitamin D3) escitalopram oxalate 10 mg tablet 10 mg PO DAILY 03/25/17 Unknown History hydrochlorothiazide 25 mg tablet 25 mg PO DAILY 03/25/17 Unknown History omega-3 fatty acids-fish oil 300 1 ea PO DAILY 03/25/17 Unknown History mg-1,000 mg capsule meclizine 25 mg chewable tablet 25 mg PO TID PRN dizziness #14 tabs 05/21/24 Unknown Rx (Antivert) Allergy/AdvReac Type Severity Reaction Status Date / Time No Known Allergies Allergy Verified 05/21/24 11:18 Social History Smoking Status: Never smoker ROS ROS ED ROS Narrative Constitutional: Negative for fever, chills, weight loss, weakness. Positive for sweats Eyes: Negative for vision loss, vision change, double vision ENT: Negative for any sore throat, ear pain, congestion Cardiovascular: Negative for any chest pain, tightness, palpitations Respiratory: Negative for any cough, sputum production, hemoptysis, dyspnea, dyspnea on exertion, orthopnea Gastrointestinal: Negative for any abdominal pain, nausea, vomiting, diarrhea, constipation, blood in stool, blood in vomit : Negative for any urinary frequency, dysuria, retention, blood in urine Muscle skeletal: Negative for any neck pain. Positive for mid back pain Neurological: Negative for any headache, syncope, dizziness Skin: Negative for any rashes, itching, abrasions, lacerations Psychiatric: Negative for any depression, stress, suicidal ideation, homicidal ideation. Positive for anxiety Hematologic: Negative for any excessive bruising, easy bleeding EXAM Physical Exam Narrative Exam Narrative: Vital signs reviewed. Patient does not appear to be in any distress. Patient is nontoxic. Patient does appear slightly anxious. HEET: Head normocephalic atraumatic, TMs clear bilaterally. Posterior pharynx is clear, moist mucous membranes. Nares clear bilaterally. Neck: Supple with no lymphadenopathy or tenderness. No signs of meningismus. Cardiac: Regular rate and rhythm no murmurs gallops or rubs, equal peripheral pulses bilaterally. Respiratory: Lungs clear to auscultation bilaterally. No chest tenderness. Abdomen: Soft, nontender, nondistended. No abdominal bruit or pulsatile masses. No hepatosplenomegaly Extremities: No peripheral edema, no signs of gross trauma or deformity. Active full range of motion of all extremities. Neuro: Cranial nerves II through XII intact, no focal neurological deficits. Juan A-Hallpike did exhibit horizontal nystagmus. This was minor. However patient did start to feel slightly dizzy as well as room spinning sensation. Skin: Clean dry and intact with no rash, purpura, petechiae, vesicles or pustules. Backs/flank: No CVA tenderness, no midline spinal tenderness, no deformity. Psych: Normal mood and affect. No SI, HI or acute psychosis. Const Vital Signs: 05/21/24 11:18 05/21/24 13:18 Temperature 97.8 F Temperature Source Temporal Pulse Rate 59 L 46 L Respiratory Rate 16 18 Blood Pressure 180/104 H 156/72 H Blood Pressure Mean 129 100 Pulse Ox 98 99 Oxygen Delivery Method Room Air Room Air [facility] Lab Data Labs: Laboratory Results - last 24 hr 05/21/24 11:44 WBC 7.5 RBC 4.54 Hgb 13.5 Hct 41.3 MCV 91.0 MCH 29.7 MCHC 32.7 RDW Std Deviation 46.0 H RDW Coeff of Daniel 13.7 Plt Count 281 MPV 11.6 Immature Gran % (Auto) 0.300 Neut % (Auto) 62.0 Lymph % (Auto) 28.6 [place] % (Auto) 7.5 Eos % (Auto) 0.9 Baso % (Auto) 0.7 Absolute Neuts (auto) 4.6 Absolute Lymphs (auto) 2.13 Nucleated RBC % 0 Sodium 139 Potassium 4.0 Chloride 103 Carbon Dioxide 31.0 Anion Gap 5 BUN 15 Creatinine 0.86 Estim Creat Clear Calc 67.40 Est GFR (MDRD) Af Amer 86 Est GFR (MDRD) Non-Af 71 BUN/Creatinine Ratio 17.4 Glucose 111 H Calcium 10.0 Total Bilirubin 0.50 AST 29 ALT 33 Alkaline Phosphatase 104 Troponin I High Sens 5 Total Protein 7.8 Albumin 3.5 Globulin 4.3 H Albumin/Globulin Ratio 0.8 L Lipase 42 Radiography Diagnostic Testing: Clinical Impression(s) from Imaging Studies Chest X-Ray 05/21/24 12:38 IMPRESSION: Normal x-ray examination of the chest. Electronically Signed: Benedicto Valle MD at 13:49 EDT , EKG Sinus bradycardia: Attestation: I personally reviewed and interpreted this EKG as follows: Comments: Sinus bradycardia, rate of 56 bpm, RI interval 150 ms, QRS duration 100 ms, no acute ST elevation, no acute infarct noted. Treatment and Re-Evaluation :: Differential diagnosis includes however is not limited to: Benign positional peripheral vertigo, ACS, AL, community-acquired pneumonia, dehydration, anxiety Patient appears to be in no obvious respiratory distress vital signs are stable, patient is nontoxic-appearing. Present to the emergency department with mid b ack pain, anxiety. Patient received a cardiac workup including troponin, CBC CMP lipase. Patient will receive a chest x-ray. IV fluids Zofran as well as meclizine will be given. Patient was agreeable to the plan. All radiologic examinations were read, reviewed by the emergency department attending. From these reads, a plan of care will be put in place. Patient CBC was unremarkable, patient's chemistries were unremarkable, lipase was negative. Troponin was 5 which is negative. EKG was unremarkable, no answer any ACS, AL, cardiac abnormality. Patient's chest x-ray two-view was unremarkable. Patient did have some improvement with meclizine. At this time, patient be diagnosed with anxiety, thoracic strain, vertigo. She is instructed to return for any worsening symptoms. All questions are answered, instructed return for any worsening symptoms. Discharge Plan Triage Chief Complaint: Dizziness ED Midlevel Provider: Nick Ellis ED Provider: Timothy Connor Dx/Rx/DC Orders Clinical Impression: Anxiety, Acute thoracic myofascial strain Instructions: ED Back Sprain/Strain, ED BPV Vertigo Prescriptions: New meclizine [Antivert] 25 mg tablet,chewable 25 mg PO TID PRN (Reason: dizziness) Qty: 14 0RF No Action atenolol 25 MG tablet 12.5 mg PO DAILY hydrochlorothiazide 25 MG tablet 25 mg PO DAILY escitalopram oxalate 10 MG tablet 10 mg PO DAILY omega-3 fatty acids-fish oil 1 EACH capsule 1 ea PO DAILY cholecalciferol (vitamin D3) [Vitamin D3] 2,000 UNIT capsule 2,000 unit PO DAILY aspirin 81 MG tablet 81 mg PO DAILY@0800 Primary Care Provider: Millicent Peña Referrals: Millicent Peña DO [Primary Care Provider] - Activity Restrictions/Additional Instructions: Take your medication as prescribed Print Language: German Disposition Disposition: Home, Self Care
[2024-05-21 12:23] LABS: Absolute Lymphocyte Count 2.13 X10^3/uL (0.83-4.51); Absolute Neutrophil Count 4.6 X10^3/uL (2.0-7.7); Basophil# 0.05 X10^3/uL; Basophil% 0.7 % (0-1); Eosinophil# 0.07 X10^3/uL; Eosinophils% 0.9 % (0-5); Hematocrit 41.3 % (37-47); Hemoglobin 13.5 g/dL (12.0-15.0); Lymphocyte # 2.13 X10^3/ul (0.83-4.51); Lymphocyte % 28.6 % (19-41); Mean Corp Hgb Conc 32.7 g/dL (32-36); Mean Corpuscular Hgb 29.7 pg (27.0-32.0); Mean Platelet Vol. 11.6 fl (6.2-12.0); Monocyte# 0.56 X10^3/uL; Monocyte% 7.5 % (0-10); NRBC Flagged by Analyzer 0 % (0-5); Neutrophil # 4.63 X10^3/uL (2.7-7.7); Platelet Count 281 K/mm3 (150-450); RBC Distribution Width CV 13.7 % (11.6-14.6); Red Blood Count 4.54 M/mm3 (4.2-5.4); White Blood Count 7.5 K/mm3 (4.4-11.0)
--- NOTE | 2024-05-21 12:38 | RAD_ITS ---
STUDY: X-RAY CHEST REASON FOR EXAM: Female, 58 years old. COUGH TECHNIQUE: PA and lateral views of the chest. COMPARISON: None. FINDINGS: The lungs are clear and expanded. There is no demonstrated pleural abnormality. Normal size heart. Normal mediastinum and audrey. Normal visualized pulmonary arteries. Normal visualized aortic arch and descending thoracic aorta. Normal visualized thoracic spine. Normal visualized ribs, clavicles, and shoulders. There is no demonstrated abnormality of the visualized soft tissue structures of the upper abdomen. RAD/Chest PA and Lateral IMPRESSION: Normal x-ray examination of the chest. Electronically Signed: Benedicto Valle MD at 13:49 EDT ,
[2024-05-21] MEDS: Meclizine HCl 25 MG Tablet PO (12:50)
[2024-05-21] MEDS: 0.9% Normal Saline (1000mL) 1,000 ML 999 ML IV (12:50)
[2024-05-21] MEDS: Ondansetron 4 MG/2 ML Vial IV (12:51)
--- NOTE | 2024-05-21 12:51 | NURSING ---
no old ekgs
[2024-05-21 12:54] LABS: ALB/GLOB Ratio 0.8 RATIO (0.9-2.4); AST(SGOT) 29 U/L (15-37); Alanine Aminotransfer ALT/SGPT 33 U/L (13-56); Albumin, Serum 3.5 g/dL (3.2-5.0); Alkaline Phosphatase 104 U/L (45-117); Anion Gap 5 (5-15); BUN 15 mg/dL (7-18); BUN/Creat Ratio 17.4 RATIO (10-20); Chloride 103 mmol/L (98-107); Creatinine, Serum 0.86 mg/dL (0.55-1.02); EST Glomerular Filtration Rate 71 mL/min (>60); Est Glom Filt Rate - Afr Amer 86 mL/min (>60); Globulin 4.3 g/dL (2.2-4.2); Glucose 111 mg/dL (74-106); Lipase 42 U/L (13-75); Protein, Total 7.8 g/dL (6.4-8.2); Sodium Level 139 mmol/L (136-145); Troponin-I HS 5 pg/mL (3.0-54.0)
[2024-05-21 13:18] VITALS: BP 156/72; PULSE 46; RESP 18; O2SAT 99
[2024-05-21 14:42] VITALS: BP 130/72; PULSE 45; RESP 18; TEMP 36.5; O2SAT 95
== END 2024-05-21 14:43 | disposition home or self-care (01) ==
PROVIDERS: Nurse Practitioner; Emergency Provider Surgery; PCP Family Medicine; Visit Provider Surgery
DX: F41.9 Anxiety disorder, unspecified (principal); S29.011A Strain of muscle and tendon of front wall of thorax, initial encounter; I10 Essential (primary) hypertension; R42 Dizziness and giddiness; X58.XXXA Exposure to other specified factors, initial encounter
CPT/HCPCS: 71046; 80053; 83690; 84484; 85025; 93005; 96361; 96374; 99283; A4216; J2405

== ENCOUNTER → 2024-06-02 | Outpatient (CLI) | payer OTHER, SELFPAY ==
[2024-06-02 10:05] LABS: Free T3 2.4 pg/mL (2.18-3.98); T4 Free Direct 0.97 ng/dL (0.76-1.46)
[2024-06-05 17:07] LABS: Thyroglobulin Antibody < 1.0 IU/mL (0.0-0.9); Thyroid Peroxidase AB 44 IU/mL (0-34)
== END | disposition home or self-care (01) ==
LOC: LAB 08:36
PROVIDERS: PCP Family Medicine; Referring Provider Family Medicine; Visit Provider Family Medicine
DX: R00.0 Tachycardia, unspecified (principal)
CPT/HCPCS: 36415; 84439; 84443; 84481; 86376; 86800

== ENCOUNTER 2024-06-07 08:47 | Outpatient (RCR) | payer OTHER, SELFPAY ==
--- NOTE | 2024-06-07 09:33 | HP.PTEVAL ---
Patient's Visit Information Visit Information Visit Information: CRISTOBAL SAMANIEGO is a 58 year old F referred to Physical Therapy by Dr. Millicent Peña DO with a diagnosis of BPV. Date of Evaluation: 06/07/24 Physical Therapist: Bob Leslie, DPT, OCS, CSCS Visit Plan Plan: Subjectively had BPPV but learned harpreet maneuver on her own and now it is abolished. Much time educating her today on possible causes and prophylaxis and ensuring harpreet was done correctly in case needed in the future. Also differential diagnosis No more skilled intervention needed at this time Subjective Subjective: Having this on and off this year. Looked up harpreet online adn has been doing it and it usually works after 3-4 tries and then it comes back. She did it a couple weeks ago and has not had a problem in last couple weeks. Was getting it lying flat and usually R then she was spinning and eyes move. It lasts a couple minutes. makes her nauseous. No changes to activities this year that may have caused it. Lying in bed and on floor seemed to casue it. Grandson born one year ago and first noticed it on the floor with him. Activities are normal now. Sleep is OK. Not employed. Hobbies: reading and grandchild. Objective Objective: Walks in I to PT without problems. feeling good, bed and chair trasnfers I and normal. Moves head well. Cervical aROM WFL and without limitations or pain. UE AROM WNL and without pain. - B hallpike jorge - roll test Oculomotor without nystagmus, normal head thrust , - ocular tilt and skew eye deviation. VOR, pursuit and saccades all normal and asymptomatic. No evidence of vertigo today with position changes or eye movements/head movements. Balance/Special Test Scores Dizziness Score: 10 Rehabilitation Potential Physical Therapy Diagnosis: BPOV likely resolved Anticipated Interventions Text: Thank you for the opportunity to evaluate your patient. For Medicare and Medicare HMO plans, please review the plan of care and approve it. It will need to be FAXED BACK to us at [phone] for Medicare purposes. For Medicare only, by signing this I certify the plan of care. Please let me know if there are questions or concerns regarding this plan of care. Physician Signature: Date:
== END 2024-06-07 12:03 | disposition home or self-care (01) ==
LOC: PT 08:47
PROVIDERS: PCP Family Medicine; Referring Provider Family Medicine; Visit Provider Family Medicine
DX: H81.10 Benign paroxysmal vertigo, unspecified ear (principal)
CPT/HCPCS: 97161

== ENCOUNTER → 2024-08-02 | Outpatient (CLI) | payer OTHER, SELFPAY ==
[2024-08-02 12:38] LABS: Cholesterol 188 mg/dL (200); High Density Lipoprotein 86 mg/dL; Triglycerides 54 mg/dL; Very Low Density Lipoprotein 11 mg/dL (5-40)
== END | disposition home or self-care (01) ==
LOC: LAB 10:17
PROVIDERS: PCP Family Medicine; Referring Provider Family Medicine; Visit Provider Family Medicine
DX: Z13.220 Encounter for screening for lipoid disorders (principal)
CPT/HCPCS: 36415; 80061

== ENCOUNTER → 2025-02-05 | Outpatient (CLI) | payer OTHER, SELFPAY ==
--- NOTE | 2025-02-05 08:22 | BI_ITS ---
EXAM: SCRN MAMM (CAD)W/BOUBACAR BILAT DATE: 02/05/2025 CLINICAL HISTORY: F, Age 59 y/o , SCREENING BREAST CANCER RISK ASSESSMENT: Has not been calculated. TECHNIQUE: Bilateral screening digital breast tomosynthesis with 2D and 3D images. Computer aided detection. COMPARISON: Prior exam(s) dated 01/06/2024, 12/07/2022, and 11/12/2021. FINDINGS: TISSUE DENSITY: The breast tissue is almost entirely fatty. Bilateral Breast Mammographic Findings: There are no suspicious masses, suspicious cluster of microcalcifications, architectural distortion or secondary signs of malignancy identified in either breast. Benign-appearing round calcifications are seen in both breasts. Benign vascular calcifications are seen in both breasts. BI/SCRN MAMM (CAD)W/BOUBACAR BILAT IMPRESSION: OVERALL FINAL ASSESSMENT: BIRADS 2 BENIGN FINDING RECOMMENDATION: Routine annual follow-up in 1 Year A letter with findings and recommendations will be mailed to the patient. Reading Location: [id number]
== END | disposition home or self-care (01) ==
LOC: OPBI 08:21
PROVIDERS: PCP Family Medicine; Referring Provider Family Medicine; Visit Provider Family Medicine
DX: Z12.31 Encounter for screening mammogram for malignant neoplasm of breast (principal)
CPT/HCPCS: 77063; 77067

== ENCOUNTER → 2025-08-09 | Outpatient (CLI) | payer OTHER, SELFPAY ==
[2025-08-09 15:28] LABS: Hematocrit 41.7 % (37-47); Hemoglobin 13.7 g/dL (12.0-15.0); Immature Granulocytes Count 0.020 X10^3/uL (0.0-0.0); Mean Corp Hgb Conc 32.9 g/dL (32-36); Mean Corpuscular Volume 90.8 fL (81-99); Mean Platelet Vol. 12.2 fl (6.2-12.0); NRBC Flagged by Analyzer 0 % (0-5); Platelet Count 294 K/mm3 (150-450); RBC Distribution Width CV 13.3 % (11.6-14.6); RBC Distribution Width SD 44.5 fl (35.1-43.9); Red Blood Count 4.59 M/mm3 (4.2-5.4); White Blood Count 6.0 K/mm3 (4.4-11.0)
[2025-08-09 15:47] LABS: AST(SGOT) 34 U/L (<=31); Alanine Aminotransfer ALT/SGPT 41 U/L (<=34); Albumin, Serum 4.3 g/dL (3.4-4.8); Alkaline Phosphatase 110 U/L (35-104); Anion Gap 14 (5-15); BUN 21 mg/dL (4-19); BUN/Creat Ratio 26.8 RATIO (10-20); Calcium,Total 10.3 mg/dL (7.6-11.0); Carbon Dioxide 26.0 mmol/L (21.0-32.0); Chloride 99 mmol/L (98-108); Cholesterol 209 mg/dL (<=200); Free T3 3.0 pg/mL (2.18-3.98); Globulin 3.5 g/dL (2.2-4.2); Glucose 87 mg/dL (70-99); Low Density Lipoprotein Calc. 117 mg/dL; Potassium 3.8 mmol/L (3.3-5.1); Triglycerides 77 mg/dL; Very Low Density Lipoprotein 15 mg/dL (5-40); cholesterol:hdl ratio screen 2.65
== END | disposition home or self-care (01) ==
LOC: BFHLAB 11:41
PROVIDERS: PCP Family Medicine; Visit Provider Family Medicine
DX: E03.9 Hypothyroidism, unspecified (principal); Z13.220 Encounter for screening for lipoid disorders
CPT/HCPCS: 36415; 80053; 80061; 84439; 84443; 84481; 85025; 86376; 86800